=== PATIENT | female | born 1995 | race Caucasian/White ===

== ENCOUNTER 2019-01-13 14:14 | Emergency (ER) | payer OTHER ==
[~2019-01-13] VITALS: Ht 157.5 cm; Wt 45.8 kg
[2019-01-13] MEDS ORDERED: ZITHROMAX500 MG PO (17:48)
[2019-01-13] MEDS ORDERED: MEDROLPACK PO (17:48)
== END 2019-01-13 17:52 | disposition home or self-care (01) ==
LOC: ER 14:14
DX: J32.8 Other chronic sinusitis (principal); R20.0 Anesthesia of skin; B96.0 Mycoplasma pneumoniae [M. pneumoniae] as the cause of diseases classified elsewhere; R51 Headache

== ENCOUNTER 2019-06-01 20:12 | Emergency (ER) | payer OTHER ==
[~2019-06-01] VITALS: Ht 152.4 cm; Wt 45.4 kg
[~2019-06-01 20:12] MED LIST: MEDROLPACK PO; ZITHROMAX500 MG PO
== END 2019-06-02 00:14 | disposition home or self-care (01) ==
LOC: ER 20:12
DX: J02.8 Acute pharyngitis due to other specified organisms (principal)

== ENCOUNTER 2021-12-20 14:27 | Outpatient (CLI) | payer OTHER | END 2021-12-20 14:36 | disposition home or self-care (01) | LOC: RAD 14:27 | PROVIDERS: ATTEND General Practice | DX: M41.26 Other idiopathic scoliosis, lumbar region (principal) | CPT/HCPCS: 72148 ==

== ENCOUNTER 2023-02-22 19:35 | Emergency (ER) | payer OTHER ==
[~2023-02-22] VITALS: Ht 157.5 cm; Wt 49.9 kg
[2023-02-22 20:59] LABS: HEMATOCRIT 41.3 % (36.0-45.00); MEAN CELL VOLUME 86.2 fL (80.00-100.00); MEAN CORPUSCULAR HEMOGLOBIN 29.2 pg (27.00-32.0); MEAN CORPUSCULAR HGB CONC 33.9 g/dl (32.0-36.0); PLATELET COUNT 223 K/uL (150-450); RED BLOOD COUNT 4.79 M/uL (4.00-6.00); RED CELL DISTRIBUTION WIDTH 13.8 % (11.5-14.5)
[2023-02-22 21:29] LABS: ALBUMIN 4.5 gm/dL (3.4-5.0); ALKALINE PHOSPHATASE 67 U/L (50-136); ALT/SGPT 17 U/L (12-78); AMYLASE 92 U/L (25-115); ANION GAP 8 (10.0-20.0); AST/SGOT 16 U/L (15-37); BILIRUBIN,CONJUGATED < 0.10 mg/dL (0.0-0.2); BLOOD UREA NITROGEN 18 mg/dL (7-18); BUN CREA RATIO 16 (7.0-25.0); CALCIUM 9.9 mg/dL (8.5-10.1); CARBON DIOXIDE 31 mEq/L (21-32); CHLORIDE 103 mmol/L (98-107); CREATININE SERUM 1.12 mg/dL (0.55-1.02); GFR 57.51; GLOBULINA 3.8 G/DL (2.4-3.5); GLUCOSE FASTING 83 mg/dL (65-100); LIPASE 57 U/L (13-75); OSMOLALITY SERUM 277 MOSM/KG (275-295); POTASSIUM 4.29 mEq/L (3.5-5.1); SODIUM 138 mmol/L (136-145); TOTAL PROTEIN 8.3 gm/dL (6.4-8.2)
[2023-02-22] MEDS ORDERED: CARAFATE1 GM PO (22:39)
[2023-02-22] MEDS ORDERED: PEPCID AC20 MG PO (22:39)
== END 2023-02-22 22:51 | disposition home or self-care (01) ==
LOC: ER 19:35
PROVIDERS: General Practice
DX: K29.70 Gastritis, unspecified, without bleeding (principal)